=== PATIENT | female | born 1990 | race African-American/Black ===

== ENCOUNTER 2017-01-21 01:21 | Emergency (ER) | payer MEDICAID ==
[~2017-01-21] VITALS: Ht 180.3 cm; Wt 82.7 kg
[2017-01-21 01:23] VITALS: BP 142/85; PULSE 90; RESP 16; TEMP 99.1; O2SAT 100
[2017-01-21] MEDS ORDERED: DEPO150I IM (01:32)
--- NOTE | 2017-01-21 01:48 | PD ---
HPI Chief Complaint: Injury Time Seen by Provider: 01:42 Travel History International Travel<30 days: No Contact w/Intl Traveler<30days: No Traveled to known affect area: No History of Present Illness HPI Patient comes in complaining of left foot pain describes as achy like in nature the dorsal aspect of her left foot. Patient states around 7:00 last night she accidentally kicked her son's bed rail. Patient states pain is getting progressively worse and feels that her foot is swollen. Pain is worse with walking. Patient denies anything making it better or radiation of the pain. Denies any numbness or tingling, , or other known injury. PFSH Past Medical History Medical History: Denies Significant Hx ?: Not LMP: 12-03-16 Social History Alcohol Use: No Tobacco Use: Yes Substance Use: No Allergies-Medications (Allergen,Severity, Reaction): Coded Allergies: Sulfa (Sulfonamide Antibiotics) (Verified Allergy, Intermediate, Itching, 01/21/17) minocycline (Verified Allergy, Intermediate, Itching, 01/21/17) Reported Meds & Prescriptions Reported Meds & Active Scripts Active Reported Depo-Provera Inj (Medroxyprogesterone Inj) 150 Mg/Ml Inj 150 Mg IM Q90D Review of Systems Except as stated in HPI: all other systems reviewed are Neg Physical Exam Narrative GENERAL: Well-developed, well nourished, in no acute distress, and non-ill appearing. SKIN: Focused skin assessment warm and dry. HEAD: Atraumatic. Normocephalic. EYES: Pupils equal and round. EOMI. No scleral icterus. No injection or drainage. ENT: No nasal bleeding or discharge. Mucous membranes pink and moist. NECK: Trachea midline. Supple. No nuclear rigidity. CARDIOVASCULAR: Dorsal pulses 2+, intact, and equal bilaterally. Capillary refill less than 2 seconds.. RESPIRATORY: No accessory muscle use. No respiratory distress. MUSCULOSKELETAL: No obvious deformities. No clubbing. No cyanosis. No edema. Full range of motion. Ankle: Neagative anterior draw and Hager test. Negative Ivan's sign. No laxity noted with passive inversion and eversion of BL ankles. Negative squeeze test. Pulses equal BL distal to injury. Capillary refill less than 2 seconds distal to injury and equal BL. Sensation equal BL 1st web space. FROM of toes distal to injury and equal BL. NV intact distal to injury and equal BL. Dorsal pulses equal BL. Patient reports tenderness to palpation over dorsal aspect of left foot there are some soft tissue swelling noted. There is no crepitus. NEUROLOGICAL: Awake and alert. No obvious cranial nerve deficits. Motor grossly within normal limits. Normal speech. PSYCHIATRIC: Appropriate mood and affect; insight and judgment normal. Data Data Last Documented VS Vital Signs Date Time Temp Pulse Resp B/P (MAP) Pulse Ox O2 Delivery O2 Flow Rate FiO2 01/21/17 03:41 01/21/17 01:23 99.1 90 16 100 Orders Orders Foot, Complete ([id number]) (01/21/17 ) Ice/Cold Pack (01/21/17 01:45) Splint Or Brace Apply/Monitor (01/21/17 02:51) Ed Discharge Order (01/21/17 02:53) MDM Medical Decision Making Medical Screen Exam Complete: Yes Emergency Medical Condition: Yes Differential Diagnosis Fracture, sprain, contusion, other Narrative Course The patient appears to have suffered a contusion of the extremity. There is no clinical evidence to suspect bony injury by exam. Radiographic examination revealed no fracture seen at this time. The patient has full range of motion on active and passive motions. There is no significant edema. There is no proximal or distal joint effusion. The distal extremity appears neurovascularly intact, without evidence of neurovascular injury nor compartment syndrome. Tendon exam also was intact. The patient was discharged and given warnings for vascular compromise. The patient is to follow up with their regular physician or chimney supervisor brick. The patient agrees with plan. Patient in no obvious distress upon re-evaluation. All pertinent Radiology result(s) discussed with patient. Any questions/concerns in reference to patient diagnosis/condition discussed and clarified prior to patient's discharge. Reinforced sheer importance of close follow up with patient's primary physician or primary care clinic and/or chimney supervisor brick. Instructed patient to return to ED immediately, if symptoms return/worsen. Patient showed understanding of above instructions. Further instructions and recommendations were detailed in discharge paperwork. Patient ambulated without difficulty out of ED at discharge. Diagnosis Primary Impression: Contusion of left foot, initial encounter Referrals: [facility] Patient Instructions: Contusion in Adults (ED), General Instructions Additional Instructions: Follow-up with your primary care physician and/or chimney supervisor brick this week for reevaluation. He is [id number] Tylenol and/or ibuprofen as needed for pain. Follow instructions on the packaging. Apply ice to affected area 20 minutes per hour as needed for pain. Wear Jonnie wrap as needed for comfort. Return to the emergency department if symptoms get worse. Disposition: 01 DISCHARGE HOME Condition: Stable Blaise Merritt Jan 21, 2017 01:48
--- NOTE | 2017-01-21 02:24 | RADRPT ---
EXAM DATE/TIME: 01/21/2017 01:50 [facility] COMPARISON: No previous studies available for comparison. INDICATIONS : Left foot pain after kicking a bed frame. MEDICAL HISTORY : None. SURGICAL HISTORY : None. ENCOUNTER: Initial ACUITY: 1 day PAIN SCORE: 8/10 LOCATION: Left medial foot. FINDINGS: Three view examination of the left foot demonstrates no soft tissue swelling, dislocation, or fractur e. The tarsal bones appear intact. The interphalangeal and metatarsophalangeal joints are intact. The calcaneus is intact. Bony mineralization is normal. CONCLUSION: 1. Negative examination of the foot. Nikhil Vickers MD on January 21, 2017 at 2:22 Board Certified Radiologist. This report was verified electronically.
== END 2017-01-21 03:35 | disposition home or self-care (01) ==
LOC: NEPD 01:21
DX: S90.32XA Contusion of left foot, initial encounter (principal); W22.03XA Walked into furniture, initial encounter; Y92.013 Bedroom of single-family (private) house as the place of occurrence of the external cause; Z72.0 Tobacco use
CPT/HCPCS: 73630; 99283